=== PATIENT | female | born 1995 | race Caucasian/White ===

== ENCOUNTER → 2018-12-30 02:50 | Emergency (ER) | payer OTHER ==
[~2018-12-30 02:50] MED LIST: NS 0.9% 1000 ML** 2,000 ML IV ONE
--- NOTE | 2018-12-30 03:12 | ED ---
Dizziness - HPI Summary HPI Summary: This patient is a 23 year old F presenting to [facility] with a chief complaint of dizziness since waking up this morning. She describes it as if lights were flashing. Patient reports mild dizziness when sitting/standing up currently, vomiting, pre-existing facial fracture from water polo on 12/27/18, and congestion following the accident. Patient denies change in PO. After the fracture, she visited [facility]. She went to the eye doctor 12/28/18 and was given Keflex there. She was not given any eye drops. She has an IUD. - History Of Current Complaint Chief Complaint: EDDizziness Stated Complaint: GENERAL ILLNESS PER EMS Time Seen by Provider: 12/30/18 02:52 Hx Obtained From: Patient Onset/Duration: Still Present Timing: Hours Severity Initially: Moderate Severity Currently: Mild Character: Dizzy Aggravating Factor(s): Supine To Erect Associated Signs And Symptoms: Positive: Vomiting, Other: - pre-existing facial fracture from water polo on 12/27/18, congestion following the accident. Negative: Decreased Oral Intake - Allergies/Home Medications Allergies/Adverse Reactions: Allergies Allergy/AdvReac Type Severity Reaction Status Date / Time nitrofurantoin Allergy See Comment Verified 12/30/18 02:54 [From Macrobid] PMH/Surg Hx/FS Hx/Imm Hx Endocrine/Hematology History: Denies: Hx Diabetes Respiratory History: Denies: Hx Asthma - Surgical History Surgery Procedure, Year, and Place: None Infectious Disease History: No Infectious Disease History: Denies: Traveled Outside the [place] in Last 30 Days - Family History Known Family History: Positive: Cardiac Disease, Diabetes, Other - Thyroid disease - Social History Occupation: Student Alcohol Use: Occasionally Hx Substance Use: No Substance Use Type: Reports: None Hx Tobacco Use: No Do You Chew or Dip Tobacco: No Review of Systems Positive: Nasal Discharge - congestion following the facial fracture Positive: Vomiting Positive: Other - pre-existing facial fracture from water polo on 12/27/18 Neurological: Other - Dizziness All Other Systems Reviewed And Are Negative: Yes Physical Exam - Summary Physical Exam Summary: VITAL SIGNS: Reviewed. GENERAL: Patient is a well-developed and nourished FEMALE who is lying comfortable in the stretcher. Patient is not in any acute respiratory distress. HEAD AND FACE: Ecchymosis over the right orbit. Has Steri-Strips over the right temporal area. EYES: PERRLA, EOMI x 2, No injected conjunctiva, no nystagmus. EARS: Hearing grossly intact. Ear canals and tympanic membranes are within normal limits. MOUTH: Oropharynx within normal limits. NECK: Supple, trachea is midline, no adenopathy, no JVD, no carotid bruit, no c- spine tenderness, neck with full ROM. CHEST: Symmetric, no tenderness at palpation LUNGS: Clear to auscultation bilaterally. No wheezing or crackles. CVS: Regular rate and rhythm, S1 and S2 present, no murmurs or gallops appreciated. ABDOMEN: Soft, non-tender. No signs of distention. No rebound, no guarding, and no masses palpated. Bowel sounds are normal. EXTREMITIES: FROM in all major joints, no edema, no cyanosis or clubbing. NEURO: Alert and oriented x 3. No acute neurological deficits. Speech is normal and follows commands. SKIN: Dry and warm Triage Information Reviewed: Yes Vital Signs On Initial Exam: Initial Vitals Temp Pulse Resp BP Pulse Ox 97.9 F 68 16 117/69 100 12/30/18 02:51 12/30/18 02:51 12/30/18 02:51 12/30/18 02:51 12/30/18 02:51 Vital Signs Reviewed: Yes Diagnostics - Vital Signs Vital Signs Temp Pulse Resp BP Pulse Ox 12/30/18 02:51 97.9 F 68 16 117/69 100 - Laboratory Result Diagrams: 12/30/18 03:16 12/30/18 03:16 Lab Statement: Any lab studies that have been ordered have been reviewed, and results considered in the medical decision making process. Dizzy Course/Dx - Course Course Of Treatment: This patient is a 23 year old F presenting to [facility] with a chief complaint of dizziness since waking up this morning. Patient's labs were normal. She will be d/c with dx of dizziness. - Diagnoses Provider Diagnoses: Dizziness Discharge - Sign-Out/Discharge Documenting (check all that apply): Patient Departure - D/C home Patient Received Moderate/Deep Sedation with Procedure: No - Discharge Plan Condition: Stable Disposition: HOME Patient Education Materials: Dizziness (ED) Forms: *School Release Referrals: [facility] [Provider Group] - 3 Days Additional Instructions: Follow up with your PCP at [facility] within 3 days. PLEASE RETURN TO THE ED IMMEDIATELY FOR WORSENING OR CONCERNING SYMPTOMS. - Attestation Statements Document Initiated by Scribe: Yes Documenting Scribe: Alex Curtis Provider For Whom Scribe is Documenting (Include Credential): Jeff Huang MD Scribe Attestation: Alex Lance, scribed for Jeff Huang MD on 12/30/18 at 0512. Status of Scribe Document: Ready
[2018-12-30 03:24] LABS: ABS Basophils 0 10^3/ul (0-0.2); ABS Eosinophils 0.2 10^3/ul (0-0.6); ABS Monocytes 0.9 10^3/ul (0-0.8); ABS Neutrophils 3.6 10^3/ul (1.5-7.7); ABS Nucleated RBC 0 10^3/ul; Eosinophil % 2.9 %; Hematocrit 38 % (33-41); Hemoglobin 13.1 g/dL (12.0-16.0); Lymphocyte % 30.1 %; Mean Corpuscular HGB Conc 35 g/dL (31-36); Mean Corpuscular Hemoglobin 30 pg (27-31); Mean Corpuscular Volume 86 fL (80-97); Nucleated Red Blood Cells % 0; Platelet Count 238 10^3/uL (150-450); Red Blood Count 4.37 10^6 /uL (3.70-4.87); Red Cell Distribution Width 15 % (10.5-15); White Blood Count 6.8 10^3/uL (3.5-10.8)
[2018-12-30 03:39] LABS: ALT 11 U/L (7-52); AST 14 U/L (13-39); Albumin 4.5 g/dL (3.2-5.2); Albumin/Globulin Ratio 1.9 (1-3); Alkaline Phosphatase 57 U/L (34-104); Anion Gap 3 mmol/L (2-11); Blood Urea Nitrogen 13 mg/dL (6-24); CO2 Carbon Dioxide 31 mmol/L (22-32); Calcium 9.4 mg/dL (8.6-10.3); Chloride 104 mmol/L (101-111); EGFR Non-African American 88.4 (>60); Globulin 2.4 g/dL (2-4); Glucose 94 mg/dL (70-100); Potassium 3.9 mmol/L (3.5-5.0); Sodium 138 mmol/L (135-145); Total Protein 6.9 g/dL (6.4-8.9)
[2018-12-30 03:46] LABS: HCG Pregnancy < 0.60 mIU/mL
[2018-12-30 04:32] LABS: TSH (Thyroid Stimulating Horm) 5.42 mcIU/mL (0.34-5.60)
[2018-12-30 05:28] VITALS: BP 123/76
== END | disposition home or self-care (01) ==
LOC: ED 02:50 → MERGE 02:50
DX: R42 Dizziness and giddiness (principal)
CPT/HCPCS: 36415; 70450; 80053; 83735; 84443; 84702; 85025; 96360; 99282